=== PATIENT | female | born 1990 | race Two or more races ===

== ENCOUNTER 2017-01-27 19:35 | Emergency (ER) | payer OTHER ==
[~2017-01-27] VITALS: Ht 152.4 cm; Wt 74.9 kg
[2017-01-27 20:08] LABS: HEMATOCRIT 39.4 % (36.0-46.0); MCH 27.3 PG (29.0-34.0); MCV 85.5 FL (83-99); MEAN PLAT.VOLUME 10.2 uM^3 (9.5-12.4); PLATELET COUNT 286 K/uL (156-360); RBC DIS.WIDTH-SD 43.7 % (39-53); RED BLOOD COUNT 4.61 M/uL (3.80-5.20); WHITE BLOOD COUNT 6.8 K/uL (4.1-10.2)
[2017-01-27 20:17] LABS: CHLORIDE 105 mEq/L (99-109); POTASSIUM 3.9 mEq/L (3.7-5.4); SODIUM 139 mEq/L (136-147)
[2017-01-27 20:18] LABS: GLUCOSE 98 mg/dL (70-99)
[2017-01-27 20:20] LABS: ANION GAP 8 MEQ/L (2-14)
[2017-01-27 20:22] LABS: GFR ESTIMATE (CALCULATED) > 59 mL/min/
[2017-01-27 20:23] LABS: UREA NITROGEN (BUN) 14 mg/dL (9-23)
[2017-01-27 20:29] LABS: TROP-I INTERPRETATION NEGATIVE; TROPONIN-I 0.03 ng/mL (0.0-0.30)
[2017-01-27 20:30] LABS: QUANTITATIVE HCG < 4.0 MIU/ML
[2017-01-27 20:39] LABS: ADD MIUA? YES; BILIRUBIN NEGATIVE; BLOOD LARGE; COLOR YELLOW ((YELLOW)); GLUCOSE (STRIP) NEGATIVE; KETONES NEGATIVE; LEUKOCYTES NEGATIVE; NITRITE NEGATIVE; PROTEIN (STRIP) 30; SPECIFIC GRAVITY 1.024 (1.000-1.030); UROBILINOGEN 0.2 MG/DL (0.2-1.0)
[2017-01-27 21:05] LABS: BACTERIA RARE /HPF; EPITHELIAL CELLS 1+ /HPF; MUCUS TRACE /LPF; RED BLOOD CELLS 0-5 /HPF (0-5); UCUL ADDED? NO; WHITE BLOOD CELLS 0-5 /HPF (0-5)
[2017-01-27 22:34] VITALS: BP 119/82
== END 2017-01-27 22:35 | disposition home or self-care (01) ==
LOC: EME → EDBD 19:35 → EME 22:35
PROVIDERS: Emergency Medicine
DX: R07.9 Chest pain, unspecified (principal); R06.02 Shortness of breath; M79.601 Pain in right arm; M79.602 Pain in left arm; Z87.891 Personal history of nicotine dependence
CPT/HCPCS: 71275; 80048; 81003; 84484; 84702; 85027; 93005; 99281; 99284

== ENCOUNTER 2017-07-27 22:13 | Emergency (ER) | payer OTHER ==
[~2017-07-27] VITALS: Ht 152.4 cm; Wt 62.4 kg
[2017-07-27 22:50] LABS: HEMATOCRIT 35.8 % (36.0-46.0); HEMOGLOBIN 11.9 G/DL (11.9-15.5); MCHC 33.2 G/DL (30.0-36.0); MCV 84.2 FL (83-99); PLATELET COUNT 280 K/uL (156-360); RBC DIS.WIDTH-CV 12.9 % (11.8-14.6); RBC DIS.WIDTH-SD 39.7 % (39-53); RED BLOOD COUNT 4.25 M/uL (3.80-5.20); WHITE BLOOD COUNT 8.1 K/uL (4.1-10.2)
[2017-07-27 23:01] LABS: CHLORIDE 105 mEq/L (99-109); POTASSIUM 3.7 mEq/L (3.7-5.4); SODIUM 138 mEq/L (136-147)
[2017-07-27 23:02] LABS: GLUCOSE 87 mg/dL (70-99)
[2017-07-27 23:06] LABS: CREATININE 0.7 mg/dL (0.6-1.3); GFR ESTIMATE (CALCULATED) > 59 mL/min/
[2017-07-27 23:07] LABS: UREA NITROGEN (BUN) 14 mg/dL (9-23)
[2017-07-27 23:34] LABS: APPEARANCE SL.HAZY ((CLEAR)); BILIRUBIN NEGATIVE; BLOOD NEGATIVE; COLOR YELLOW ((YELLOW)); GLUCOSE (STRIP) NEGATIVE; KETONES NEGATIVE; LEUKOCYTES LARGE; NITRITE NEGATIVE; PROTEIN (STRIP) NEGATIVE; SPECIFIC GRAVITY 1.027 (1.000-1.030); UROBILINOGEN 0.2 MG/DL (0.2-1.0)
[2017-07-27 23:40] LABS: BACTERIA NONE SEEN /HPF; EPITHELIAL CELLS 1+ /HPF; MUCUS TRACE /LPF; RED BLOOD CELLS 0-5 /HPF (0-5); UCUL ADDED? NO; WHITE BLOOD CELLS 0-5 /HPF (0-5)
[2017-07-27 23:42] LABS: QUANTITATIVE HCG 23805.8 MIU/ML
[2017-07-28 02:37] LABS: ALBUMIN 4.2 g/dL (3.2-4.8)
[2017-07-28 02:40] LABS: TOTAL PROTEIN 7.2 g/dL (6.4-8.3)
[2017-07-28 02:42] LABS: TOTAL BILIRUBIN 0.2 mg/dL (0.0-1.0)
[2017-07-28 02:43] LABS: ALKALINE PHOSPHATASE 49 IU/L (3-129)
[2017-07-28 02:45] LABS: AST (GOT) 16 IU/L (2-34); DIRECT BILIRUBIN 0.1 mg/dL (0.0-0.3)
[2017-07-28 02:46] LABS: ALT (GPT) 20 IU/L (3-49)
[2017-07-28 03:10] VITALS: BP 116/72
== END 2017-07-28 03:12 | disposition home or self-care (01) ==
LOC: EME 22:13
PROVIDERS: Physician Assistant; Physician Assistant Medical
DX: O26.891 Other specified pregnancy related conditions, first trimester (principal); R10.9 Unspecified abdominal pain; Z3A.01 Less than 8 weeks gestation of pregnancy; Z87.891 Personal history of nicotine dependence
CPT/HCPCS: 76801; 80048; 80076; 81003; 84702; 85027; 86900; 86901; 99281; 99284